=== PATIENT | male | born 1990 | race Caucasian/White ===

== ENCOUNTER 2021-07-12 21:28 | Emergency (ER) | payer BC ==
[2021-07-12] MEDS ORDERED: Clindamycin Phosphate 900 MG/6 ML SDV IM ONE (21:50)
[2021-07-12] MEDS ORDERED: Clindamycin Phosphate in D5W 600 MG in Premix Bag 1 BAG IV ONE ×2 (22:11)
== END 2021-07-12 22:51 | disposition home or self-care (01) ==
LOC: MW.ED 21:28
DX: L03.211 Cellulitis of face (principal)
CPT/HCPCS: 96374; 99283; J3490; 99284

== ENCOUNTER 2022-05-27 17:22 | Emergency (ER) | payer BC ==
[2022-05-27] MEDS ORDERED: Sodium Chloride 0.9% 2.5 ML Syringe FLUSH PRN (18:29)
[2022-05-27] MEDS ORDERED: Sodium Chloride 0.9% 10 ML Syringe FLUSH PRN (18:29)
[2022-05-27] MEDS ORDERED: cefTRIAXone 2 GM in Premix Bag 1 BAG IV ONE (18:36)
[2022-05-27 19:31] LABS: BLOOD UREA NITROGEN,BUN 14 mg/dL (7.0-18.0); CARBON DIOXIDE,CO2 24.7 mmol/L (21.0-32.0); CHLORIDE,CL 103 mmol/L (98-107); GLUCOSE RANDOM 100 mg/dL (74-106); POTASSIUM,K 3.8 mmol/L (3.5-5.1); SODIUM,NA 139 mmol/L (136-148)
[2022-05-27 19:34] LABS: ESTIMATED GFR 117 mL/min (>60)
[2022-05-27] MEDS ORDERED: Iopamidol 755 MG/ML 500 ML Multipack Bottle IVPUSH ONE (19:42)
== END 2022-05-27 19:45 | disposition home or self-care (01) ==
LOC: MW.ED 17:22
DX: L03.114 Cellulitis of left upper limb (principal); F17.210 Nicotine dependence, cigarettes, uncomplicated; F41.9 Anxiety disorder, unspecified; F32.A Depression, unspecified; Z79.899 Other long term (current) drug therapy
CPT/HCPCS: 36415; 73201; 80053; 85025; 96365; 99284; J0696; J3490; Q9967

== ENCOUNTER 2025-02-26 17:04 | Emergency (ER) | payer BC ==
[2025-02-26] MEDS ORDERED: Sodium Chloride 0.9% 2.5 ML Syringe FLUSH PRN (18:07)
[2025-02-26] MEDS ORDERED: Sodium Chloride 0.9% 10 ML Syringe FLUSH PRN (18:07)
[2025-02-26 18:34] LABS: BASOPHILS ABSOLUTE AUTO 0.06 K/uL (0.00-0.20); BASOPHILS PERCENT AUTO 0.4 % (0.0-1.0); EOSINOPHILS ABSOLUTE AUTO 0.21 K/uL (0.00-0.45); EOSINOPHILS PERCENT AUTO 1.4 % (0.0-6.0); IMMATURE GRAN ABSOLUTE AUTO 0.23 K/uL (0.00-0.05); IMMATURE GRAN PERCENT AUTO 1.5 % (0.0-0.4); LYMPHOCYTES ABSOLUTE AUTO 2.44 K/uL (1.00-4.80); LYMPHOCYTES PERCENT AUTO 16.0 % (24.0-44.0); MEAN PLATELET VOLUME 9.5 fL (9.4-12.4); MONOCYTES ABSOLUTE AUTO 0.91 K/uL (0.00-0.80); MONOCYTES PERCENT AUTO 6.0 % (0.0-8.0); NEUTROPHILS ABSOLUTE AUTO 11.40 K/uL (1.80-7.70); NEUTROPHILS PERCENT AUTO 74.7 % (41.0-71.0); NRBC ABSOLUTE 0.00 K/uL (0.00-0.02); NRBC PERCENT 0.0 /100WBC (0.0-0.2); PLATELET COUNT,PLT 310 K/uL (150-400); RED BLOOD CELL COUNT 5.46 M/uL (4.52-5.90); WHITE BLOOD CELL COUNT,WBC 15.25 K/uL (3.9-11.3)
[2025-02-26 19:04] LABS: A/G RATIO 0.9 (0.9-1.6); ALANINE AMINOTRANSFERASE,ALT 72.0 IU/L (14-63); ASPARTATE AMNIOTRANSFERASE,AST 30.0 IU/L (15-37); BILIRUBIN TOTAL 0.3 mg/dL (0.2-1.0); BLOOD UREA NITROGEN,BUN 14.0 mg/dL (7.0-18.0); CARBON DIOXIDE,CO2 30.9 mmol/L (21.0-32.0); CHLORIDE,CL 101.0 mmol/L (98-107); CREATININE 0.9 mg/dL (0.8-1.3); EST CRCL DRUG DOSING (CG) 115.65 mL/min; GLUCOSE RANDOM 73.0 mg/dL (74-106); POTASSIUM,K 4.0 mmol/L (3.5-5.1); PRO B-TYPE NATRIUR PEPT,BNPPRO 7.0 pg/mL (0-125); PROTEIN TOTAL,TP 8.8 g/dL (6.4-8.2); SODIUM,NA 139.0 mmol/L (136-148)
[2025-02-26 19:12] LABS: ESTIMATED GFR 115.0 mL/min (>60)
[2025-02-26] MEDS: cefTRIAXone 2 GM in Water For Injection, Sterile 20 ML IVPUSH ONE (19:47)
== END 2025-02-26 19:54 | disposition home or self-care (01) ==
LOC: MW.ED 17:04
DX: J18.9 Pneumonia, unspecified organism (principal); J02.9 Acute pharyngitis, unspecified; R19.7 Diarrhea, unspecified; F17.200 Nicotine dependence, unspecified, uncomplicated; M79.10 Myalgia, unspecified site; Z79.51 Long term (current) use of inhaled steroids
CPT/HCPCS: 36415; 71046; 71046-26; 80053; 83605; 83735; 83880; 84484; 85025; 87040; 87428-QW; 87651; 96374; 99283; 99285-25; A4216; A9270-GY; J0696